=== PATIENT | male | born 1995 | race Caucasian/White ===

== ENCOUNTER 2019-03-18 10:56 | Emergency (ER) | payer OTHER ==
[2019-03-18 11:06] VITALS: BP 143/59
[2019-03-18] MEDS ORDERED: Tetan/Diph/Pertus SYR(Tdap)* 0.5 ML SYR(BOOSTRIX) use SYR contains LATEX IM ONE (11:51)
[2019-03-18] MEDS ORDERED: Ibuprofen TAB* 600 MG PO ONE (11:55)
--- NOTE | 2019-03-18 12:00 | UC ---
Hand/Wrist HPI - HPI Summary HPI Summary: Patient is a 23-year-old male presenting with laceration to left third, fourth, and fifth fingers after being cut with gas powered pruning ramya this morning at work. Patient states they bled immediately but he has gotten bleeding to stop. Notes throbbing pain. Denies decreased ROM and strength. Patient is R hand dominant. Denies numbness and tingling in fingers. Not UTD on tetanus. Has not taken anything for pain relief. - History Of Current Complaint Chief Complaint: UCLaceration Stated Complaint: WC-LEFT HAND DIGIT LACERATION Hx Obtained From: Patient Onset/Duration: Sudden Onset Severity Initially: Severe Severity Currently: Severe Pain Intensity: 8 Pain Scale Used: 0-10 Numeric - Allergies/Home Medications Allergies/Adverse Reactions: Allergies Allergy/AdvReac Type Severity Reaction Status Date / Time No Known Allergies Allergy Verified 03/18/19 11:01 Home Medications: Home Medications NK [No Home Medications Reported] 03/18/19 [History Confirmed 03/18/19] PMH/Surg Hx/FS Hx/Imm Hx - Surgical History Surgical History: None - Social History Alcohol Use: Occasionally Substance Use Type: None Smoking Status (MU): Never Smoked Tobacco Review of Systems All Other Systems Reviewed And Are Negative: Yes Constitutional: Positive: Negative Skin: Positive: Other - finger lacerations L 3rd, 4th, 5th Respiratory: Positive: Negative Cardiovascular: Positive: Negative Neurovascular: Positive: Negative Musculoskeletal: Positive: Negative. Negative: Arthralgia, Decreased ROM, Edema Neurological: Negative: Paresthesia, Numbness Physical Exam Triage Information Reviewed: Yes Appearance: Well-Appearing, No Pain Distress, Well-Nourished Vital Signs: Initial Vital Signs Temp 96.3 F 03/18/19 11:01 Pulse 67 03/18/19 11:01 Resp 17 03/18/19 11:01 BP 143/59 03/18/19 11:01 Pulse Ox 100 03/18/19 11:01 Vital Signs Reviewed: Yes Eyes: Positive: Conjunctiva Clear ENT: Positive: Hearing grossly normal Neck: Positive: Supple Respiratory: Positive: No respiratory distress Cardiovascular: Positive: Pulses Normal, Brisk Capillary Refill Musculoskeletal Exam: Normal Musculoskeletal: Positive: Strength Intact, ROM Intact - L fingers, No Edema Neurological: Positive: Alert Psychological: Positive: Age Appropriate Behavior Skin: Positive: Other - multiple superficial laceration on palmar surface of L 3rd, 4th, 5th distal phalanges. no active bleeding. no Hand/Wrist Course/Dx - Course Course Of Treatment: Patient wound was irrigated. He received tetanus booster and ibuprofen. Patient' s lacerations did not require repair. Full ROM of fingers. His wounds were dressed and he received educated of wound care. Patient voiced understanding and agreed with plan. - Differential Dx/Diagnosis Provider Diagnosis: Laceration of left index finger, Laceration of left middle finger, Laceration of left ring finger Discharge ED - Sign-Out/Discharge Documenting (check all that apply): Patient Departure All imaging exams completed and their final reports reviewed: No Studies - Discharge Plan Condition: Stable Disposition: HOME Patient Education Materials: Diphtheria/Acellular Pertussis/Tetanus Booster Vaccine (By injection), Finger Laceration (ED) Forms: *Work Release Referrals: Jarvis Kasper MD [Medical Doctor] - If Needed Additional Instructions: As discussed, your wounds do not need to be repaired with stitches. Keep the wounds clean and dry for the next 48 hours. After that, you may wash gently with soap and water daily. The wounds should heal nicely on their own with rest and time. You may continue to take over the counter pain medications as directed. Go to the emergency room if you experience new or worsening symptoms, including severe pain, drainage from the wounds, redness and warmth of the fingers, or fever. - Billing Disposition and Condition Condition: STABLE Disposition: Home
== END 2019-03-18 12:46 | disposition home or self-care (01) ==
LOC: UCCORT 10:56
DX: S61.211A Laceration without foreign body of left index finger without damage to nail, initial encounter (principal); S61.213A Laceration without foreign body of left middle finger without damage to nail, initial encounter; S61.215A Laceration without foreign body of left ring finger without damage to nail, initial encounter; W31.1XXA Contact with metalworking machines, initial encounter; Y92.9 Unspecified place or not applicable
CPT/HCPCS: 90471; 90715; 99203; A9270-GY; G0463